=== PATIENT | female | born 1995 | race Two or more races ===

== ENCOUNTER 2022-09-02 23:09 | Emergency (ER) | payer OTHER ==
[~2022-09-02] VITALS: Ht 160 cm; Wt 51.3 kg
[2022-09-02 23:36] VITALS: BP 97/51
--- NOTE | 2022-09-02 23:42 | NUR ---
DR. LUPE VALDEZ AT PT'S BEDSIDE
--- NOTE | 2022-09-02 23:51 | NUR ---
COMMUNICATIONS TECH AT PT'S BEDSIDE
[2022-09-03] MEDS ORDERED: ACETAMINOPHEN 325 MG TABLET PO ONE
[2022-09-03] MEDS ORDERED: ACETAMINOPHEN 325 MG TABLET ONE (00:07)
--- NOTE | 2022-09-03 00:15 | NUR ---
COVID ANTIGEN, STEP SWAB, INFLUENZA, SWAB COLLECTED AND SENT TO LAB
--- NOTE | 2022-09-03 00:21 | NUR ---
URINE COLLECTED AND SENT TO LAB
[2022-09-03 00:34] LABS: BILIRUBIN,URINE NEGATIVE (NEGATIVE); COLOR,URINE YELLOW (YELLOW); LEUKOCYTE ESTERASE ,URINE LARGE (NEGATIVE); NITRITE, URINE NEGATIVE (NEGATIVE); PROTEIN,URINE TRACE mg/dl (NEGATIVE); UGLUCOSE NEGATIVE (NEGATIVE); UROBILINOGEN,URINE 0.2 EU/dL (0.2)
[2022-09-03 07:22] LABS: BACTERIA,URINE Many /HPF (None Seen); SQUAMOUS EPITHELIAL CELL,UR Moderate /HPF (None Seen); WBC,URINE 51-80 /HPF (0-3)
== END 2022-09-03 01:01 | disposition left against medical advice (07) ==
LOC: ER 23:20
DX: R50.9 Fever, unspecified (principal); Z20.822 Contact with and (suspected) exposure to COVID-19; Z97.5 Presence of (intrauterine) contraceptive device
CPT/HCPCS: 99284; 71045; 87077; 87426; 87804; 87086; 87186; 81001; 87880; 87070; C9803; 86403-TC